=== PATIENT | male | born 1980 | race Caucasian/White ===

== ENCOUNTER 2017-11-06 20:56 | Emergency (ER) | payer BC ==
[2017-11-06] MEDS ORDERED: Ketorolac 60 MG/2 ML SDV IM ONE (22:14)
--- NOTE | 2017-11-06 22:35 | EDM.PDOC ---
ED HPI GENERAL MEDICAL PROBLEM - General Chief Complaint: Lower Extremity Injury/Pain Stated Complaint: PAIN RT ANKLE Time Seen by Provider: 11/06/17 22:32 Source of Information: Reports: Patient - History of Present Illness INITIAL COMMENTS - FREE TEXT/NARRATIVE: HISTORY AND PHYSICAL: History of present illness: [Patient presents with pain of his right foot and ankle after falling in his yard at home He has moderate swelling over the dorsum of his foot no bruising, unaffected above the ankle where swelling over the lateral malleolus again no bruising entirely limb is neurovascularly intact no redness warmth or open lesion no fever nausea vomiting chills sweats no headache or loss of consciousness] Review of systems: As per history of present illness and below otherwise all systems reviewed and negative. Past medical history: As per history of present illness and as reviewed below otherwise noncontributory. Surgical history: As per history of present illness and as reviewed below otherwise noncontributory. Social history: No reported history of drug or alcohol abuse. Family history: As per history of present illness and as reviewed below otherwise noncontributory. Physical exam: HEENT: Atraumatic, normocephalic, pupils reactive, negative for conjunctival pallor or scleral icterus, mucous membranes moist, throat clear, neck supple, nontender, trachea midline. Lungs: Clear to auscultation, breath sounds equal bilaterally, chest nontender. Heart: S1S2, regular, negative for clicks, rubs, or JVD. Abdomen: Soft, nondistended, nontender. Negative for masses or hepatosplenomegaly. Negative for costovertebral tenderness. Pelvis: Stable nontender. Genitourinary: Deferred. Rectal: Deferred. Extremities: Atraumatic, negative for cords or calf pain. Neurovascular unremarkable. Right lower extremity as per history of present illness Neuro: Awake, alert, oriented. Cranial nerves II through XII unremarkable. Cerebellum unremarkable. Motor and sensory unremarkable throughout. Exam nonfocal. Diagnostics: []Right foot 3 views Right ankle 3 views Therapeutics: []Rest ice ibuprofen CAM boot crutches nonweightbearing Follow-up with orthopedist Impression: [ right foot injury Right ankle injury ] Definitive disposition and diagnosis as appropriate pending reevaluation and review of above. 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 ED EXAM, GENERAL - Physical Exam Exam: See Below Course - Vital Signs Last Recorded V/S: Last Vital Signs Temp 98.3 F 11/06/17 22:11 Pulse 94 11/06/17 22:11 Resp 20 11/06/17 22:11 BP 140/91 H 11/06/17 22:11 Pulse Ox 95 11/06/17 22:11 - Orders/Labs/Meds Orders: Active Orders 24 hr Category Date Time Status Ankle Min 3V Rt [CR] Stat Exams 11/06/17 21:20 Taken Foot Comp Min 3V Rt [CR] Stat Exams 11/06/17 21:20 Taken Meds: Medications Discontinued Medications Generic Name Dose Route Start Last Admin Trade Name Obiq PRN Reason Stop Dose Admin Ketorolac Tromethamine 60 mg 11/06/17 22:14 11/06/17 22:21 Toradol IM 11/06/17 22:15 60 mg ONETIME ONE Administration Departure - Departure Time of Disposition: 22:34 Disposition: Home, Self-Care 01 Condition: Good Clinical Impression: Right foot injury, Right ankle injury - Discharge Information Referrals: PCP,None [Primary Care Provider] - Additional Instructions: Rest Ice 20 minute intervals 3 times daily as needed Ibuprofen 400 mg 3 times daily 7-10 days Cam boot crutches nonweightbearing Follow-up with orthopedist, call for appointment phone number below to schedule appropriate follow-up [facility] [address], [address] [place] [address] my orthopedic The following information is given to patients seen in the emergency department who are being discharged to home. This information is to outline your options for follow-up care. We provide all patients seen in our emergency department with a follow-up referral. The need for follow-up, as well as the timing and circumstances, are variable depending upon the specifics of your emergency department visit. If you don't have a primary care physician on staff, we will provide you with a referral. We always advise you to contact your personal physician following an emergency department visit to inform them of the circumstance of the visit and for follow-up with them and/or the need for any referrals to a consulting specialist. The emergency department will also refer you to a specialist when appropriate. This referral assures that you have the opportunity for follow-up care with a specialist. All of these measure are taken in an effort to provide you with optimal care, which includes your follow-up. Under all circumstances we always encourage you to contact your private physician who remains a resource for coordinating your care. When calling for follow-up care, please make the office aware that this follow-up is from your recent emergency room visit. If for any reason you are refused follow-up, please contact the [facility] emergency department at and asked to speak to the emergency department charge nurse. - My Orders Last 24 Hours: My Active Orders 11/06/17 21:20 Ankle Min 3V Rt [CR] Stat Foot Comp Min 3V Rt [CR] Stat - Assessment/Plan Last 24 Hours: My Active Orders 11/06/17 21:20 Ankle Min 3V Rt [CR] Stat Foot Comp Min 3V Rt [CR] Stat
--- NOTE | 2017-11-09 09:42 | CR ---
EXAM DATE: 11/06/17 PATIENT'S AGE: 37 Patient: THOM GARCES Facility: [place], [place] Site . Site : 1980 Study: XRay Extremity Right ankle [id number]/18/2018 9:56:25 PM Ordering Physician: Doctor Peck Final Report: INDICATION: Twisting injury. TECHNIQUE: Three views. FINDINGS: A note radiograph shows fracture. No dislocation. No acute bone or joint abnormality is identified. No significant chronic change. The dome of the talus is well maintained. IMPRESSION: Negative radiographic examination right ankle. If signs/symptoms continued if clinically indicated, consider repeat/follow-up views in 1 week. Dictated by Haja Randall MD @ Nov 06 2017 10:07PM (Electronic Signature) Report Signed by Proxy. ELOISA
--- NOTE | 2017-11-09 09:43 | CR ---
EXAM DATE: 11/06/17 PATIENT'S AGE: 37 Patient: THOM GARCES Facility: [place], [place] Site . Site : 1980 Study: XRay Extremity Right foot [id number]/18/2018 9:56:45 PM Ordering Physician: Doctor Peck Final Report: INDICATION: Pain. TECHNIQUE: Three views. FINDINGS: No fracture/dislocation/acute bone or joint abnormality is identified. Cortical contour and bony alignment well maintained. IMPRESSION: Negative radiographic examination right foot. If signs/symptoms continue, consider follow-up radiographic examination in 1 week. Dictated by Haja Randall MD @ Nov 06 2017 10:17PM (Electronic Signature) Report Signed by Proxy. ELOISA
== END 2017-11-06 23:00 | disposition home or self-care (01) ==
LOC: MW.ED 20:56
DX: S99.921A Unspecified injury of right foot, initial encounter (principal); S99.911A Unspecified injury of right ankle, initial encounter; F17.210 Nicotine dependence, cigarettes, uncomplicated; W19.XXXA Unspecified fall, initial encounter; Y92.096 Garden or yard of other non-institutional residence as the place of occurrence of the external cause
CPT/HCPCS: 73610; 73630; 96372; 99283; J1885

== ENCOUNTER 2024-06-12 16:31 | Emergency (ER) | payer BC, OTHER ==
[2024-06-12] MEDS: Acetaminophen/oxyCODONE 325-5 MG Tab PO ONE (18:57)
== END 2024-06-12 19:10 | disposition home or self-care (01) ==
LOC: MW.ED 16:31
DX: S82.892A Other fracture of left lower leg, initial encounter for closed fracture (principal); Z75.8 Other problems related to medical facilities and other health care; Z79.899 Other long term (current) drug therapy; W19.XXXA Unspecified fall, initial encounter; X50.1XXA Overexertion from prolonged static or awkward postures, initial encounter
CPT/HCPCS: 73610; 99283; A9270